=== PATIENT | male | born 1980 | race Caucasian/White ===

== ENCOUNTER 2016-08-29 11:00 | Emergency (ER) | payer OTHER ==
[~2016-08-29] VITALS: Ht 167.6 cm; Wt 72.6 kg
[2016-08-29 11:05] VITALS: BP 107/76
== END 2016-08-29 11:58 | disposition home or self-care (01) ==
LOC: ED 11:00
DX: L03.116 Cellulitis of left lower limb (principal); Z86.14 Personal history of Methicillin resistant Staphylococcus aureus infection; Z88.1 Allergy status to other antibiotic agents; Z79.899 Other long term (current) drug therapy

== ENCOUNTER 2016-09-07 15:53 | Emergency (ER) | payer OTHER ==
[2016-09-07 16:07] VITALS: BP 112/79
== END 2016-09-07 16:44 | disposition left against medical advice (07) ==
LOC: ED 15:53
DX: S39.012A Strain of muscle, fascia and tendon of lower back, initial encounter (principal); G56.01 Carpal tunnel syndrome, right upper limb; F17.210 Nicotine dependence, cigarettes, uncomplicated; Z98.890 Other specified postprocedural states; Z88.0 Allergy status to penicillin; X58.XXXA Exposure to other specified factors, initial encounter; Y93.89 Activity, other specified; Y99.8 Other external cause status; Y92.89 Other specified places as the place of occurrence of the external cause
CPT/HCPCS: J1885

== ENCOUNTER 2017-08-18 08:46 | Emergency (ER) | payer MEDICAID ==
[~2017-08-18] VITALS: Ht 167.6 cm; Wt 64.4 kg
[2017-08-18 09:00] VITALS: Ht 167.6 cm; Wt 64.4 kg
[2017-08-18 11:00] VITALS: BP 136/90
== END 2017-08-18 11:00 | disposition home or self-care (01) ==
LOC: ED 08:46
DX: S76.911A Strain of unspecified muscles, fascia and tendons at thigh level, right thigh, initial encounter (principal); Z88.0 Allergy status to penicillin; V89.2XXA Person injured in unspecified motor-vehicle accident, traffic, initial encounter; Y93.I9 Activity, other involving external motion; Y92.89 Other specified places as the place of occurrence of the external cause; Y99.8 Other external cause status